=== PATIENT | female | born 1975 | race Caucasian/White ===

== ENCOUNTER 2016-10-31 20:19 | Emergency (ER) | payer BC ==
[2016-10-31 21:46] VITALS: BP 127/85
[2016-10-31] MEDS ORDERED: Silver Sulfadiazine 1%* 20 GM TOPICAL ONE (22:46)
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
== END 2016-10-31 22:52 | disposition home or self-care (01) ==
LOC: UCEAST 20:19
DX: T25.012A Burn of unspecified degree of left ankle, initial encounter (principal); X12.XXXA Contact with other hot fluids, initial encounter; Y93.9 Activity, unspecified; Y92.9 Unspecified place or not applicable; J30.9 Allergic rhinitis, unspecified; Z88.0 Allergy status to penicillin; F17.210 Nicotine dependence, cigarettes, uncomplicated
CPT/HCPCS: 99202; A9270-GY; G0463